=== PATIENT | female | born 1995 | race Caucasian/White ===

== ENCOUNTER → 2017-04-22 | Outpatient (CLI) | payer OTHER ==
--- NOTE | 2017-04-22 11:01 | RADIOLOGY REPORT (SQ) ---
EXAM DESCRIPTION: U/S LTD DUPLEX ART/ÁNGEL FLOW; U/S RETROPERITON (RENAL/AORTA) COMPLETED DATE/TIME: 04/22/2017 10:04 am REASON FOR STUDY: HTN/DAIANA I70.1 ATHEROSCLEROSIS OF RENAL ARTERY COMPARISON: None. TECHNIQUE: Realtime and static grayscale images acquired. Selected color Doppler, velocities and spe ctral images recorded. LIMITATIONS: Midline bowel gas 2 FINDINGS: RIGHT KIDNEY: RENAL ARTERY VELOCITIES: At the hilum, 107 cm/sec. Segmental artery velocity 84 cm/sec. RENAL VEIN: Color doppler flow present, patent. VELOCITY RATIO: 0.96. Normal waveforms. KIDNEY: 13.3 cm in length. Renal parenchyma near completely replaced with multiple cysts of varyin g sizes, worrisome for adult polycystic kidney disease. LEFT KIDNEY: RENAL ARTERY VELOCITIES: At the hilum, 131 cm/sec. Segmental artery velocity 69 cm/sec. RENAL VEIN: Color doppler flow present, patent. VELOCITY RATIO: 1.2. Normal waveforms. KIDNEY: 16.4 cm in length. Renal parenchyma near completely replaced with multiple cysts of vary ing sizes, worrisome for adult polycystic kidney disease. BLADDER: Normal. OTHER: No other significant finding. IMPRESSION: NO DOPPLER EVIDENCE OF HEMODYNAMICALLY SIGNIFICANT RENAL ARTERY STENOSIS. RENAL PARENCHYMA NEAR COMPLETELY REPLACED WITH RENAL CORTICAL CYSTS OF VARYING SIZES, WORRISOME FOR A DULT POLYCYSTIC KIDNEY DISEASE. COMMENT: NORMAL RENAL ARTERY/AORTA VELOCITY RATIO IS LESS THAN OR EQUAL TO 3.5. TECHNICAL DOCUMENTATION: JOB ID: [id number] [email or web address]- [email or web address] Rights Reserved
== END ==
LOC: RAD 09:02
DX: I70.1 Atherosclerosis of renal artery (principal)
CPT/HCPCS: 76770; 93976